=== PATIENT | female | born 1950 | race Caucasian/White ===

== ENCOUNTER 2017-06-30 14:41 | Outpatient (CLI) | payer MEDICARE, OTHER | END 2017-06-30 14:42 | LOC: POD 14:41 | PROVIDERS: ATTEND Podiatrist | DX: M72.2 Plantar fascial fibromatosis (principal) | CPT/HCPCS: G0463 ==

== ENCOUNTER 2017-07-14 13:15 | Outpatient (CLI) | payer MEDICARE, OTHER | END 2017-07-14 13:16 | LOC: POD 13:15 | PROVIDERS: ATTEND Podiatrist | DX: M72.2 Plantar fascial fibromatosis (principal) | CPT/HCPCS: 20550; G0463; J2920; J1030 ==

== ENCOUNTER 2017-08-17 10:06 | Emergency (ER) | payer MEDICARE, OTHER ==
--- NOTE | 2017-08-17 10:42 | ED Physician Documentation ---
General Adult - HISTORIAN Historian: patient - HPI Stated Complaint: cough, sore throat Chief Complaint: General Adult Onset: days ago Timing: still present Severity: moderate Further Comments: yes (Pt is a 67 yo female with cough and sore throat for 4 days. No fever, n/v. No ear pain.) - ROS CONST: other (malaise) EYES/ENT: sore throat CVS/RESP: cough GI/: none MS/SKIN/LYMPH: none - PAST HX Past History: other (cancer, GERD) Surgeries/Procedures: other (ortho) Allergies/Adverse Reactions: Allergies Allergy/AdvReac Type Severity Reaction Status Date / Time adhesive tape Allergy Verified 08/17/17 10:45 Penicillins Allergy Verified 08/17/17 10:45 Sulfa (Sulfonamide Allergy Verified 08/17/17 10:45 Antibiotics) Home Medications: Ambulatory Orders Medication Instructions Recorded Azithromycin [Zithromax] 250 mg PO DAILY #6 tablet 08/17/17 Citalopram Hydrobromide 20 mg PO DAILY 08/17/17 [Citalopram HBr] Estradiol [Estrace] 1 mg PO DAILY 08/17/17 Fenofibrate [Lipofen] 145 mg PO DAILY 08/17/17 Pantoprazole Sodium [Protonix] 40 mg PO DAILY 08/17/17 Propranolol HCl [Inderal] 10 mg PO DAILY 08/17/17 Ranitidine HCl [Ranitidine HCl] 300 mg PO DAILY 08/17/17 - SOCIAL HX Smoking History: non-smoker - FAMILY HX Family History: No - REVIEWED ASSESSMENTS Nursing Assessment Reviewed: Yes Vitals Reviewed: Yes Progress - Progress Progress: Influenza A&B - neg General Adult Physical Exam - PHYSICAL EXAM GENERAL APPEARANCE: mild distress EENT: pharynx normal NECK: normal inspection, supple RESPIRATORY: no resp distress, chest non-tender, other (cough) CVS: reg rate & rhythm, heart sounds normal BACK: normal inspection, no CVA tenderness SKIN: warm/dry, normal color EXTREMITIES: non-tender, normal range of motion, no evidence of injury, no edema NEURO: oriented X3, motor nml, sensation nml Discharge Clincal Impression: URI (upper respiratory infection) Qualifiers: URI type: unspecified URI Qualified Code(s): J06.9 - Acute upper respiratory infection, unspecified Prescriptions: Azithromycin [Zithromax] 250 mg PO DAILY #6 tablet Referrals: Kim Burns PRN [Primary Care Provider] - Condition: Good Disposition: 01 HOME, SELF-CARE Decision to Admit: NO Decision Time: 10:43
[2017-08-17 10:44] VITALS: BP 131/59
== END 2017-08-17 10:57 | disposition home or self-care (01) ==
LOC: ED 10:06
DX: J06.9 Acute upper respiratory infection, unspecified (principal)
CPT/HCPCS: 99282

== ENCOUNTER 2018-08-09 16:31 | Emergency (ER) | payer MEDICARE, OTHER ==
--- NOTE | 2018-08-09 16:48 | ED Physician Documentation ---
General Adult - HISTORIAN Historian: patient - HPI Chief Complaint: General Adult Further Comments: yes (68 year old female patient present with complaint of right lower jaw pain. Patient reports she had impressions done on Thursday, pain started on Thursday, worse today. Has used Tylenol and Ibuprofen with no relief. Did not contact the dentist. Drove herself to the ER.) - ROS CONST: no problems EYES/ENT: none CVS/RESP: none GI/: none MS/SKIN/LYMPH: none NEURO/PSYCH: denies: headache, fainting, dizziness, tingling, numbness, difficulty walking, difficulty with speech, anxiety, depression, other - PAST HX Past History: hypertension, other (HLD, depression/anxiety) Allergies/Adverse Reactions: Allergies Allergy/AdvReac Type Severity Reaction Status Date / Time adhesive tape Allergy Verified 08/09/18 16:43 Penicillins Allergy Verified 08/09/18 16:43 Sulfa (Sulfonamide Allergy Verified 08/09/18 16:43 Antibiotics) Home Medications: Ambulatory Orders Medication Instructions Recorded Citalopram Hydrobromide 20 mg PO DAILY 08/17/17 [Citalopram HBr] Estradiol [Estrace] 1 mg PO DAILY 08/17/17 Fenofibrate [Lipofen] 145 mg PO DAILY 08/17/17 Pantoprazole Sodium [Protonix] 40 mg PO DAILY 08/17/17 Propranolol HCl [Inderal] 10 mg PO DAILY 08/17/17 Ranitidine HCl 300 mg PO DAILY 08/17/17 Clindamycin HCl [Cleocin HCl] 300 mg PO QID #28 capsule 08/09/18 - SOCIAL HX Smoking History: non-smoker - FAMILY HX Family History: No - VITAL SIGNS Vital Signs: Vital Signs Temp Pulse Resp BP Pulse Ox 131/59 08/17/17 10:57 - REVIEWED ASSESSMENTS Nursing Assessment Reviewed: Yes Vitals Reviewed: Yes Progress - Progress Progress: Patient drove herself to the ER, will medicate with toradol for pain. Discharged with norco and clindamycin Rx. General Adult Physical Exam - PHYSICAL EXAM GENERAL APPEARANCE: mild distress EENT: eye inspection normal, ENT inspection normal, pharynx normal, no signs of dehydration, NIKOLAI, no nystagmus, TM's nml, other (Multiple missing teeth. #18 with cap; edema and erythema around tooth; mild edema noted in right jaw. ) RESPIRATORY: no resp distress CVS: reg rate & rhythm SKIN: warm/dry, normal color NEURO: oriented X3, mood/affect nml Discharge Clincal Impression: Dental abscess Prescriptions: Clindamycin HCl [Cleocin HCl] 300 mg PO QID #28 capsule Referrals: Kim Burns PRN [Primary Care Provider] - 2 Days Additional Instructions: Tylenol 650-1000mg every 4 hours as needed for pain, limit your dose to 4G in 24 hours. Ibuprofen 800mg (4 tabs) three times a day for the next 3 days. 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 Condition: Stable Disposition: 01 HOME, SELF-CARE Decision to Admit: NO Decision Time: 16:48
[2018-08-09] MEDS ORDERED: KETOROLAC TROMETHAMINE 60 MG/2 ML VIAL IM ONE (16:50)
[2018-08-09 16:52] VITALS: BP 141/79
== END 2018-08-09 16:59 | disposition home or self-care (01) ==
LOC: ED 16:31
DX: K04.7 Periapical abscess without sinus (principal)
CPT/HCPCS: 96372; 99282; 99284; J1885

== ENCOUNTER 2018-09-21 08:12 | Emergency (ER) | payer MEDICARE, OTHER ==
[2018-09-21] MEDS ORDERED: methylPREDNISolone SOD SUCC 125 MG/2 ML VIAL IM ONE (08:28)
--- NOTE | 2018-09-21 08:29 | ED Physician Documentation ---
Upper Respiratory Symptoms - HISTORIAN Historian: patient - HPI Stated Complaint: Congestion Chief Complaint: Cough/ Upper Respiratory Additional Information: Patient presents to ED with a 3 day history of cough, nasal congestion and malaise. She denies fever. Reports coughing up green sputum Onset: days ago (3) Duration: intermittent episodes Context: denies: recent foreign travel Severity: mild Associated Symptoms: runny nose, sinus drainage, productive cough. denies: fever, chills, sinus pain - ROS CONST/EYES: denies: weakness CVS/RESP: denies: chest pain, shortness of breath LYMPH: denies: rash GI/: denies: vomiting, nausea NEURO/PSYCH: denies: dizziness MS/SKIN: denies: muscle aches - PAST HX Lung Disease: none PE Risk Factors: none Other History: hypertension Surgeries/Procedures: none Allergies/Adverse Reactions: Allergies Allergy/AdvReac Type Severity Reaction Status Date / Time adhesive tape Allergy Verified 09/21/18 08:29 Penicillins Allergy Verified 09/21/18 08:29 Sulfa (Sulfonamide Allergy Verified 09/21/18 08:29 Antibiotics) Home Medications: Ambulatory Orders Medication Instructions Recorded Pantoprazole Sodium [Protonix] 40 mg PO DAILY 08/17/17 Propranolol HCl [Inderal] 10 mg PO DAILY 08/17/17 Ranitidine HCl 300 mg PO DAILY 08/17/17 Cefdinir [Omnicef] 300 mg PO BID #14 capsule 09/21/18 Citalopram Hydrobromide [Celexa] 2 tab PO DAILY 09/21/18 Fenofibrate Nanocrystallized 1 tab PO DAILY 09/21/18 [Tricor] Propranolol HCl [Inderal] 1 tab PO DAILY 09/21/18 - SOCIAL HX Smoking History: non-smoker Alcohol Use: none Drug Use: none - FAMILY HX Family History: none - VITAL SIGNS Vital Signs: Vital Signs Temp Pulse Resp BP Pulse Ox 96.3 F L 69 16 136/56 96 09/21/18 09:10 09/21/18 09:10 09/21/18 09:10 09/21/18 09:10 09/21/18 09:10 - REVIEWED ASSESSMENTS Nursing Assessment Reviewed: Yes Vitals Reviewed: Yes ED Results Lab/Radiology - Orders Orders: ED Orders Category Date Time Status methylPREDNISolone SOD SUCC [Solu-MEDROL] Med 09/21/18 08:28 Discontinued 125 mg IM NOW ONE Upper Respiratory Symptoms - EXAM General Appearance: no acute distress, alert EENT: nml ENT inspection Neck: normal inspection, supple Respiratory: no resp. distress, breath sounds nml Abdomen: non-tender, nml bowel sounds CVS: reg rate & rhythm, heart sounds normal Skin: color nml, no rash Extremities: non-tender, no edema Neuro/Psych: oriented x3, neuro intact, mood/affect nml Discharge Clincal Impression: Upper respiratory infection Qualifiers: URI type: unspecified URI Qualified Code(s): J06.9 - Acute upper respiratory infection, unspecified Prescriptions: Cefdinir [Omnicef] 300 mg PO BID #14 capsule Referrals: Kim Burns, PRN [Primary Care Provider] - 2 Days Additional Instructions: 1. Take antibiotics as directed 2. Sinus irrigation could be beneficial 3. Add Mucinex daily until antibiotics are complete 4. Follow up with PCP within 1 week 5. Return to ER for new or worsening symptom Condition: Stable Disposition: 01 HOME, SELF-CARE Decision to Admit: NO Date of Decison to Admit: 09/21/18 Decision Time: 09:48
[2018-09-21 08:30] VITALS: BP 136/56
== END 2018-09-21 09:10 | disposition home or self-care (01) ==
LOC: ED 08:12
DX: J06.9 Acute upper respiratory infection, unspecified (principal)
CPT/HCPCS: 96372; 99283; J2930